=== PATIENT | male | born 1955 | race African-American/Black ===

== ENCOUNTER 2022-07-02 12:45 | Emergency (ER) | payer OTHER ==
--- NOTE | 2022-07-02 13:37 | RAD REPORT ---
EXAM DESCRIPTION: RAD - Chest Single View - 07/02/2022 1:29 pm CLINICAL HISTORY: CHEST PAIN Chest pain. COMPARISON: No comparisons FINDINGS: Portable technique limits examination quality. The lungs are grossly clear. The heart is normal in size. No displaced fractures. IMPRESSION: No acute intrathoracic process suspected.
[2022-07-02 13:52] LABS: Absolute Lymphocytes (CBC) 2.4 K/uL (0.7-4.9); Hematocrit 38.9 % (39.6-49.0); MCV 72.4 fL (80-100); MPV 7.5 fL (7.6-11.3); RBC Red Blood Cell Count 5.37 M/uL (4.33-5.43)
[2022-07-02 14:03] LABS: Potassium 3.8 mmol/L (3.5-5.1); Troponin High Sensitivity 17.6 pg/mL (<58.9)
--- NOTE | 2022-07-02 15:10 | ER ---
Nurse's Notes [facility] Name: Dhruv Spence Jr Age: 67 yrs Sex: Male : 1955 Arrival Date: 07/02/2022 Time: 13:03 Bed 5 Private MD: Diagnosis: Chest pain, unspecified Presentation: 07/02 13:04 Chief complaint: Patient states: chest discomfort since Friday, went to [place] [facility] and [facility] had EKG and was told to come here. Coronavirus screen: Vaccine status: Patient reports receiving the 2nd dose of the covid vaccine. Client denies travel out of the [place] in the last 14 days. Ebola Screen: Patient negative for fever greater than or equal to 101.5 degrees Fahrenheit, and additional compatible Ebola Virus Disease symptoms Patient denies exposure to infectious person. Patient denies travel to an Ebola-affected area in the 21 days before illness onset. Initial Sepsis Screen: Does the patient meet any 2 criteria? No. Patient's initial sepsis screen is negative. Does the patient have a suspected source of infection? No. Patient's initial sepsis screen is negative. Risk Assessment: Do you want to hurt yourself or someone else? Patient reports no desire to harm self or others. 13:04 Method Of Arrival: Ambulatory [facility] 13:04 Acuity: NILESH 3 [facility] 13:04 Onset of symptoms was July 02, 2022. mb9 Triage Assessment: 13:06 General: Appears in no apparent distress. slender, well groomed, well developed, well [facility] nourished, Behavior is calm, cooperative, appropriate for age. Pain: Complains of pain in chest. Cardiovascular: Reports chest pain, lightheadedness, nausea. Historical: - Allergies: 13:06 No Known Allergies; [facility] - PMHx: 13:06 Hypercholesterolemia; Hypertensive disorder; [facility] - Immunization history:: Adult Immunizations up to date. - Social history:: Smoking status: Patient denies any tobacco usage or history of. - Family history:: not pertinent. - Hospitalizations: : No recent hospitalization is reported. Screenin:15 Abuse screen: Denies threats or abuse. Nutritional screening: No deficits noted. mb9 Tuberculosis screening: No symptoms or risk factors identified. Fall Risk None identified. Assessment: 13:25 General: Appears in no apparent distress. comfortable, Behavior is calm, cooperative, mb9 appropriate for age. 13:25 Pain: Complains of pain in chest Quality of pain is described as pressure, Pain began mb9 suddenly. Neuro: Level of Consciousness is awake, alert, obeys commands, Oriented to person, place, time, situation, Appropriate for age. Cardiovascular: Heart tones S1 S2 present Capillary refill < 3 seconds Rhythm is regular. Respiratory: Airway is patent Respiratory effort is even, unlabored, Respiratory pattern is regular, symmetrical. GI: Abdomen is flat, Bowel sounds present X 4 quads. Abd is soft and non tender X 4 quads. Patient currently denies abdominal pain, nausea. : No signs and/or symptoms were reported regarding the genitourinary system. EENT: No signs and/or symptoms were reported regarding the EENT system. Derm: Skin is intact, Skin is dry, Skin is normal, Skin temperature is warm. Musculoskeletal: Range of motion: intact in all extremities. 14:06 General: Appears in no apparent distress. comfortable, Behavior is calm, cooperative, mb9 appropriate for age. Pain: Denies pain. Neuro: Level of Consciousness is awake, alert, obeys commands, Oriented to person, place, time, situation, Appropriate for age. Cardiovascular: Heart tones S1 S2 present Rhythm is regular. Respiratory: Airway is patent Respiratory effort is even, unlabored, Respiratory pattern is regular, symmetrical. Derm: Skin is intact, Skin is dry, Skin is normal, Skin temperature is warm. 15:14 General: Appears in no apparent distress. comfortable, Behavior is calm, cooperative, mb9 appropriate for age. Pain: Denies pain. Neuro: Level of Consciousness is awake, alert, obeys commands, Oriented to person, place, time, situation, Appropriate for age. Cardiovascular: Rhythm is regular Chest pain is denied. Respiratory: Airway is patent. Derm: Skin is dry, Skin is normal, Skin temperature is warm. Vital Signs: 13:04 BP 121 / 92; Pulse 69; Resp 16; Temp 98.7; Pulse Ox 100% ; Weight 102.97 kg; Height 6 jh5 ft. 3 in. (190.50 cm); Pain 4/10; 14:06 BP 138 / 83; Pulse 80; Resp 16; Pulse Ox 100% on R/A; mb9 15:14 BP 114 / 95; Pulse 62; Resp 16; Pulse Ox 100% on R/A; mb9 13:04 Body Mass Index 28.37 (102.97 kg, 190.50 cm) [facility] ED Course: 13:03 Patient arrived in ED. am2 13:06 Triage completed. [facility] 13:06 Arm band placed on right wrist. [facility] 13:06 Patient has correct armband on for positive identification. Client placed on continuous mb9 cardiac and pulse oximetry monitoring. NIBP monitoring applied. night monitor on. 13:08 Norman Cotton MD is Attending Physician. rn 13:10 Jess Segal, KAMINI is Primary Nurse. mb9 13:31 XRAY Chest (1 view) In Process Unspecified. EDMS 13:37 Basic Metabolic Panel Sent. mb9 13:37 CBC with Diff Sent. mb9 13:37 D-Dimer Sent. mb9 13:37 NT PRO-BNP Sent. mb9 13:37 Troponin HS Sent. mb9 13:37 Inserted saline lock: 20 gauge in left antecubital area, using aseptic technique. Blood mb9 collected. 15:09 Celoi Watts MD is Referral Physician. rn 15:15 No provider procedures requiring assistance completed. mb9 15:16 IV discontinued, intact, bleeding controlled, No redness/swelling at site. Pressure mb9 dressing applied. Administered Medications: No medications were administered Medication: 15:15 VIS not applicable for this client. mb9 Outcome: 15:10 Discharge ordered by . rn 15:22 Discharged to home ambulatory. mb9 15:22 Condition: stable 15:22 Discharge instructions given to patient, Instructed on discharge instructions, follow up and referral plans. Demonstrated understanding of instructions, follow-up care. 15:22 Patient left the ED. mb9 Signatures: Dispatcher [employer] EDMS Norman Cotton MD MD rn Moreno, Amanda am2 Elly Sheehan RN KAMINI [facility] Jess Segal, RN RN mb9
--- NOTE | 2022-07-02 15:10 | EDPHYS ---
Physician Documentation [facility] Name: Dhruv Spence Jr Age: 67 yrs Sex: Male : 1955 Arrival Date: 07/02/2022 Time: 13:03 Bed 5 Private MD: ED Physician Norman Cotton HPI: 07/02 13:24 This 67 yrs old Black Male presents to ER via Ambulatory with complaints of Chest Pain. rn 13:24 The patient or guardian reports chest pain that is located primarily in the anterior rn chest wall, left. Onset: 2 day(s) ago. The pain does not radiate. Associated signs and symptoms: Pertinent positives: None. Pertinent negatives: abdominal pain, cough, diaphoresis, lower extremity swelling, shortness of breath, syncope, vomiting. The chest pain is described as sharp. Duration: The patient or guardian reports multiple episodes, that are intermittent. Modifying factors: The symptoms are alleviated by nothing. the symptoms are aggravated by nothing. Severity of pain: At its worst the pain was mild in the emergency department the pain is unchanged. The patient has not experienced similar symptoms in the past. The patient has been recently seen by a physician:. Pt reports chest pain that began while singing in a group, left sided, no radiation, no fever/cough, does not feel ill. NO trauma. No known cardiac problems. Sent here by pcp for further evaluation. . Historical: - Allergies: 13:06 No Known Allergies; jh5 - PMHx: 13:06 Hypercholesterolemia; Hypertensive disorder; jh5 - Immunization history:: Adult Immunizations up to date. - Social history:: Smoking status: Patient denies any tobacco usage or history of. - Family history:: not pertinent. - Hospitalizations: : No recent hospitalization is reported. ROS: 13:24 Constitutional: Negative for fever, chills, and weight loss, Eyes: Negative for injury, rn pain, redness, and discharge, Neck: Negative for injury, pain, and swelling, Cardiovascular: Negative for palpitations, and edema, Respiratory: Negative for shortness of breath, cough, wheezing, and pleuritic chest pain, Abdomen/GI: Negative for abdominal pain, nausea, vomiting, diarrhea, and constipation, Back: Negative for injury and pain, MS/Extremity: Negative for injury and deformity, Skin: Negative for injury, rash, and discoloration, Neuro: Negative for headache, weakness, numbness, tingling, and seizure. Exam: 13:24 Constitutional: This is a well developed, well nourished patient who is awake, alert, rn and in no acute distress. Head/Face: Normocephalic, atraumatic. Eyes: Periorbital areas with no swelling, redness, or edema. Cardiovascular: Regular rate and rhythm. No pulse deficits. Respiratory: No increased work of breathing, no retractions or nasal flaring. Abdomen/GI: Soft, non-tender Skin: Warm, dry MS/ Extremity: Pulses equal, no cyanosis. Neuro: Awake and alert, GCS 15 13:52 ECG was reviewed by the Attending Physician. rn Vital Signs: 13:04 BP 121 / 92; Pulse 69; Resp 16; Temp 98.7; Pulse Ox 100% ; Weight 102.97 kg; Height 6 5 ft. 3 in. (190.50 cm); Pain 4/10; 14:06 BP 138 / 83; Pulse 80; Resp 16; Pulse Ox 100% on R/A; mb9 15:14 BP 114 / 95; Pulse 62; Resp 16; Pulse Ox 100% on R/A; mb9 13:04 Body Mass Index 28.37 (102.97 kg, 190.50 cm) 5 MDM: 13:08 Patient medically screened. rn 15:07 Differential diagnosis: acute myocardial infarction, anxiety, chest wall pain, rn costochondritis, pleurisy, pneumothorax, pulmonary embolus, stable angina. HEART Score: History: Slightly Suspicious (0), ECG: Normal (0), Age: > or = 65 years (2), Risk Factors: 1 or 2 risk factors (1), Troponin: < or = 1 x Normal Limit (0), Total Score = 3. Data reviewed: vital signs, nurses notes, lab test result(s), EKG, radiologic studies, plain films, and as a result, I will discharge patient. Counseling: I had a detailed discussion with the patient and/or guardian regarding: the historical points, exam findings, and any diagnostic results supporting the discharge/admit diagnosis, lab results, radiology results, the need for outpatient follow up, to return to the emergency department if symptoms worsen or persist or if there are any questions or concerns that arise at home. Response to treatment: the patient's symptoms have mildly improved after treatment, and as a result, I will discharge patient. Special discussion: Based on the patient's history, exam, and Dx evaluation, there is no indication for emergent intervention or inpatient Tx. It is understood by the patient/guardian that if the Sx's persist or worsen they need to return immediately for re-evaluation. I discussed with the patient/guardian in detail that at this point there is no indication for admission to the hospital. It is understood, however, that if the symptoms persist or worsen the patient needs to return immediately for re-evaluation. Based on the history and exam findings, there is no indication for further emergent testing or inpatient evaluation. I discussed with the patient/guardian the need to see the hunting guide for further evaluation of the symptoms. ED course: Patient with vague chest pain that doesn't radiate, under a lot of stress, no ischemia on ecg, trop neg, d-dimer neg, cxr neg. Will dc home with return precautions and cardiology/pcp f/u. . 07/02 13:16 Order name: Basic Metabolic Panel; Complete Time: 14:52 rn 07/02 13:16 Order name: CBC with Diff; Complete Time: 14:52 rn 07/02 13:16 Order name: D-Dimer; Complete Time: 14:52 rn 07/02 13:16 Order name: NT PRO-BNP; Complete Time: 14:52 rn 07/02 13:16 Order name: Troponin HS; Complete Time: 14:52 rn 07/02 13:16 Order name: XRAY Chest (1 view); Complete Time: 14:52 rn 07/02 13:16 Order name: EKG; Complete Time: 13:17 rn 07/02 13:16 Order name: Cardiac monitoring; Complete Time: 13:19 rn 07/02 13:16 Order name: EKG - Nurse/Tech; Complete Time: 13:19 rn 07/02 13:16 Order name: IV Saline Lock; Complete Time: 13:37 rn 07/02 13:16 Order name: Labs collected and sent; Complete Time: 13:37 rn 07/02 13:16 Order name: O2 Per Protocol; Complete Time: 13:19 rn 07/02 13:16 Order name: O2 Sat Monitoring; Complete Time: 13:19 rn EC:52 Rate is 64 beats/min. Rhythm is regular. QRS [place] is Normal. [place] interval is normal. QRS rn interval is normal. QT interval is normal. No Q waves. T waves are Normal. No ST changes noted. Clinical impression: NSR w/ Non-specific ST/T Changes. Interpreted by me. Reviewed by me. Administered Medications: No medications were administered Disposition Summary: 07/02/22 15:10 Discharge Ordered Location: Home rn Problem: new rn Symptoms: have improved rn Condition: Stable rn Diagnosis - Chest pain, unspecified rn Followup: rn - With: Celio Watts MD - When: As needed - Reason: Recheck today's complaints, Re-evaluation by your physician Discharge Instructions: - Discharge Summary Sheet rn - Nonspecific Chest Pain, Adult rn Forms: - Medication Reconciliation Form rn - Thank You Letter rn - Antibiotic wood patternmaker - Prescription Opioid Use rn Signatures: Dispatcher [employer] Norman Salazar MD MD rn Rees, Jessica, RN RN jh5
[2022-07-02 15:52] VITALS: TEMP 98.7; O2SAT 100
[2022-07-02 16:03] VITALS: BP 114/95
--- NOTE | 2022-07-04 06:35 | EKG ---
Test Date: 2022-07-02 Test Time: 13:15:17 Hotel Security Officer: MB MEASUREMENT RESULTS: Intervals: Rate: 64 HI: 154 QRSD: 88 QT: 402 QTc: 414 [place]: P: 54 HI: 154 QRS: -20 T: 26 INTERPRETIVE STATEMENTS: Normal sinus rhythm Minimal voltage criteria for LVH, may be normal variant Borderline ECG No previous ECG available for comparison Electronically Signed On 07-04-22 06:30:53 CATALYST OPERATOR G[employer]OLINE by Celio Watts
== END 2022-07-02 15:22 | disposition home or self-care (01) ==
LOC: ER 12:45
DX: R07.9 Chest pain, unspecified (principal); I10 Essential (primary) hypertension; E78.00 Pure hypercholesterolemia, unspecified
CPT/HCPCS: 36415; 71045; 80048; 83880; 84484; 85025; 85379; 93005; 99284